=== PATIENT | female | born 1940 | race Native Hawaiian/Other Pacific Islander ===

== ENCOUNTER 2017-06-28 13:49 | Outpatient (CLI) | payer OTHER ==
[2017-06-28] MEDS ORDERED: ALPR0.5T24 PO (14:33)
[2017-06-28] MEDS ORDERED: DONE5TAB PO (14:34)
[2017-06-28] MEDS ORDERED: 904272561 PO (14:35)
[2017-06-28] MEDS ORDERED: DIVA125C PO (14:36)
[2017-06-28] MEDS ORDERED: LIPITOR10 MG PO (14:37)
[2017-06-28] MEDS ORDERED: HYDROCHLOROT12.5 M1 PO (14:37)
[2017-06-28] MEDS ORDERED: NAMENDA5 MG PO (14:38)
[2017-06-28] MEDS ORDERED: AMLODIPINE BESYLATE PO (14:40)
[2017-06-28] MEDS ORDERED: RISP0.5T2 PO (14:42)
[2017-06-28] MEDS ORDERED: MICRO-K10 MEQ PO (14:42)
[2017-06-28] MEDS ORDERED: LEVO0.1224 PO (14:43)
== END 2017-06-28 14:17 | disposition short-term general hospital (02) ==
LOC: AMB 13:49
DX: F03.91 Unspecified dementia, unspecified severity, with behavioral disturbance (principal)
CPT/HCPCS: A0425; A0429